=== PATIENT | male | born 1985 | race Caucasian/White ===

== ENCOUNTER 2018-08-06 10:25 | Emergency (ER) | payer OTHER ==
[~2018-08-06] VITALS: Ht 180.3 cm; Wt 100.9 kg
[2018-08-06 10:25] VITALS: BP 133/80
[2018-08-06] MEDS ORDERED: ADACEL/BOOSTRIX VACCINE (DIPHTH/PERTUSS/ACELL/TETANUS)0.5ML SYR (90715) IM ONE (11:45)
--- NOTE | 2018-08-06 12:02 | REP ---
LEFT HAND COMPLETE: 08/06/2018 Clinical history: Trauma, dropped heavy object on hand. No pain. Findings: Four views are provided. Distal radius and ulna, carpal bones, metacarpals and phalanges are without fracture or focal lesion. There is some mild soft-tissue swelling dorsal aspect of the hand. No avulsion, displaced fracture, erosion, foreign body or other acute finding. Impression: 1. No fracture or other acute bony finding about the hand. Electronically Signed by Rey Joel MD 08/06/2018 05:54 P
== END 2018-08-06 11:57 | disposition home or self-care (01) ==
LOC: M ED 10:25
DX: S61.411A Laceration without foreign body of right hand, initial encounter (principal); S60.221A Contusion of right hand, initial encounter; W20.8XXA Other cause of strike by thrown, projected or falling object, initial encounter; Y92.89 Other specified places as the place of occurrence of the external cause; Y99.0 Civilian activity done for income or pay